=== PATIENT | male | born 1980 ===

== ENCOUNTER 2022-12-31 14:09 | Outpatient (CLI) | payer OTHER, SELFPAY ==
--- NOTE | 2022-12-31 14:27 | XR_ITS ---
WS: [id number] Chest 2 views, 12/31/2022 Clinical Data: JANICE PARKINSON WHITE COMPLICATIONS Comparison: None. Findings: No nodules, masses or effusions are seen. The heart is normal. The pulmonary vascularity is not increased. No pneumonia or pneumothorax is seen. XR/XR chest 2V* [id number] Impression: Negative chest.
--- NOTE | 2022-12-31 14:27 | USCV_ITS ---
Nilson Fernando Age: 42 Gender: M : 1980 Exam Date: 12/31/2022 14:58 Ordering Phys: Davian Davis Technologist: Roxanne Hawley Exam Location: [facility] [place] Indication: WPW BP: / HR: 98 Rhythm: Sinus Technical Quality: Adequate MEASUREMENTS (Male / Female) Normal Values 2D ECHO LV Diastolic Diameter PLAX 4.4 cm 4.2 - 5.9 / 3.9 - 5.3 cm LV Systolic Diameter PLAX 3.2 cm LV Chamber Size 2.8 cm IVS Diastolic Thickness 0.8 cm 0.6 - 1.0 / 0.6 - 0.9 cm IVS Systolic Thickness 1.4 cm LVPW Diastolic Thickness 1.0 cm 0.6 - 1.0 / 0.6 - 0.9 cm LVPW Systolic Thickness 1.4 cm RV Chamber Size 2.5 cm LVOT Diameter 2.0 cm LV Ejection Fraction 2D Teich 57.1 % LV Ejection Fraction MOD 2C 53.7 % LV Ejection Fraction 2C AL 52.4 % LA Diameter 3.8 cm LA Width 2.3 cm LA Height 4.2 cm RA Width 3.1 cm RA Height 4.0 cm Aorta at Sinotubular Diameter 3.3 cm IVC Diameter 1.3 cm M-MODE Aortic Annulus Diameter 3.8 cm LA Ao Ratio MM 1.2 MV E Point Septal Separation 0.4 cm DOPPLER AV Peak Velocity 106.0 cm/s LVOT Peak Velocity 106.0 cm/s AV Area Cont Eq vti 3.3 cm squared AV Area Cont Eq pk 3.2 cm squared MV Peak Velocity 107.0 cm/s MV Area PHT 5.0 cm squared Mitral E to A Ratio 1.5 MV E' Velocity 50.5 cm/s Mitral E to MV E' Ratio 11.1 Mitral E to LV E' Lateral Ratio 11.8 Mitral E to LV E' Septal Ratio 10.6 TR Peak Velocity 182.3 cm/s TR Peak Gradient 13.3 mmHg TR Mean Velocity 143.7 cm/s TR Mean Gradient 9.0 mmHg TR Velocity Time Integral 41.9 cm TV Peak E Velocity 60.0 cm/s Right Atrial Pressure 3.0 mmHg Pulmonary Artery Systolic Pressu 16.3 mmHg RV Acceleration Time 0.1 s RV Ejection Time 0.3 s RV AcT/ET 0.4 FINDINGS Left Ventricle Normal left ventricular size and systolic function, EF 55 %. No regional wall motion abnormalities. Right Ventricle The right ventricle is normal in size and function. Right Atrium The right atrium is normal in size. Left Atrium The left atrium is normal in size. Mitral Valve No gross abnormalities noted Aortic Valve No gross abnormalities noted Tricuspid Valve Trace tricuspid valve regurgitation. Pulmonic Valve No gross abnormalities noted Pericardium Normal pericardium without effusion. Aorta Normal ascending aorta dimension. IVC The inferior vena cava appears normal. CONCLUSIONS Normal left ventricular size and systolic function, EF 55 %. No regional wall motion abnormalities. Normal cardiac chamber sizes. Trace tricuspid valve regurgitation. Estimated pulmonary artery peak systolic pressure within normal limits There is no pericardial effusion. There are no intracardiac masses. No similar previous studies are available for comparison Dr Handy Perez MD FACC (Electronically Signed) Final Date: 02 Jan 2023 15:58 S
== END 2022-12-31 14:10 | disposition home or self-care (01) ==
PROVIDERS: PCP Internal Medicine; Visit Provider Nurse Practitioner Primary Care
DX: I45.6 Pre-excitation syndrome (principal)
CPT/HCPCS: 71046; 93005; 93306